=== PATIENT | male | born 1940 | race African-American/Black ===

== ENCOUNTER 2017-07-06 15:03 | Emergency (ER) | payer MEDICARE ==
[2017-07-06] MEDS ORDERED: ISOVUE-370 76%-LOCM 1 ML ONE (17:04)
[2017-07-06] MEDS ORDERED: HYDROcodone/Acetaminophen 10/325 mg Tablet ONE (17:33)
[2017-07-06 17:53] LABS: #Eosinphils 0.1 thou/uL (0.0-0.7); #Lymphocytes 2.8 thou/uL (1.20-3.40); #Neutrophils 7.5 thou/uL (1.40-6.50); %Basophils 0.4 % (0.0-1.0); %Eosinophils 1.2 % (0.0-10.0); %Lymphocytes 24.3 % (21.0-51.0); %Monocytes 8.7 % (0.0-10.0); Hematocrit 42.6 % (42.0-52.0); Mean Platelet Volume 6.5 fL (7.4-10.4); Red Blood Cell (RBC) Count 4.46 mill/uL (4.70-6.10); White Blood Cell (WBC) Count 11.4 thou/uL (4.8-10.8)
[2017-07-06 18:14] LABS: Anion Gap 13 mmol/L (10-20); BUN (Urea Nitrogen) 8 mg/dL (8.4-25.7); Calc. Creatinine Clearance 0 mL/min (70-130); Calcium 10.8 mg/dL (7.8-10.44); Carbon Dioxide 28 mmol/L (23-31); Chloride 100 mmol/L (98-107); Estimated GFR-MDRD Greater than 90
[2017-07-06] MEDS ORDERED: Oxymetazoline HCl 0.05% ( 15 ML ) ONE (19:18)
--- NOTE | 2017-07-06 19:27 | CT ---
CT NECK WITH IV CONTRAST 07/06/17 HISTORY: Throat pain. Cough. FINDINGS: Upper airway is patent. Thyroid gland has a normal appearance. There is calcification in the arterial structures. Prominent degenerative changes involve the cervical spine. The adenoidal tissue to the right of midline is slightly prominent without focal fluid collection linda arent. No tonsillar abscesses or apparent. Numerous small metallic embedded objects are present throughout the left side of the neck and face. IMPRESSION: 1. No acute inflammatory lesions of the neck are apparent. Chronic type findings are as detailed above. 2. Atherosclerosis. POS: [facility]
== END 2017-07-06 19:23 | disposition home or self-care (01) ==
LOC: ERS 15:03
DX: J02.9 Acute pharyngitis, unspecified (principal); E11.9 Type 2 diabetes mellitus without complications; I10 Essential (primary) hypertension
CPT/HCPCS: 36415; 70491; 80048; 85025

== ENCOUNTER 2020-05-24 07:54 | Outpatient (CLI) | payer MEDICARE, OTHER ==
[2020-05-25 12:03] LABS: SARS-CoV-2 MS2 Positive; SARS-CoV-2 N Gene Negative; SARS-CoV-2 S Gene Negative; SARS-CoV-2 by NAA Not Detected (NotDetected); SARS-CoV-2 orf1ab Negative
== END 2020-05-24 07:55 | disposition home or self-care (01) ==
LOC: LABBT 07:54
PROVIDERS: ATTEND Ophthalmology Retina Specialist
DX: H54.7 Unspecified visual loss (principal); Z20.828 Contact with and (suspected) exposure to other viral communicable diseases
CPT/HCPCS: 87635; U0003

== ENCOUNTER 2020-05-27 05:45 | Day surgery (SDC) | payer MEDICARE ==
[2020-05-26 14:40] VITALS: BMI 28.3
[2020-05-27] MEDS ORDERED: Phenylephrine 2.5% Ophth Soln 5 ML BOT ONE (05:58)
[2020-05-27] MEDS ORDERED: Cyclopentolate 1% Opth Drop 2 ML BOT ONE (05:58)
[2020-05-27] MEDS ORDERED: Fluorouracil 100 MG, Enoxaparin Sodium 25 MG, EPINEPHrine 0.3 MG in Ophthalmic Irrigati... IRR SCH (06:15)
[2020-05-27] MEDS ORDERED: PROPOFOL 20 ML ONE (06:21)
[2020-05-27] MEDS ORDERED: Bupivacaine PF 0.75% SDV 10 ML ONE (12:39)
[2020-05-27] MEDS ORDERED: Maxitrol 0.1% Opth Oint 3.5 GM TUBE ONE (12:39)
[2020-05-27] MEDS ORDERED: Triamcinolone 40 MG/ML VIAL ONE (12:39)
[2020-05-27] MEDS ORDERED: Lidocaine 1% PF 5 ML VIAL ONE (12:39)
[2020-05-27] MEDS ORDERED: Lidocaine 4% PF 5 ML AMP ONE (12:39)
[2020-05-27] MEDS ORDERED: Indocyanine Green 25 MG/10 ML VIAL ONE (12:39)
[2020-05-27] MEDS ORDERED: CEFAZOLIN 1 GM VIAL ONE (12:39)
--- NOTE | 2020-05-28 16:23 | OP ---
DATE OF PROCEDURE: 05/27/2020 PREOPERATIVE DIAGNOSIS: Epiretinal membrane, right eye. POSTOPERATIVE DIAGNOSIS: Epiretinal membrane, right eye. PROCEDURE PERFORMED: Pars plana vitrectomy and membrane peel, right eye. ANESTHESIA: Local with monitored anesthesia care. DESCRIPTION OF PROCEDURE: The patient was identified in the preoperative holding area. Appropriate informed consent for the planned surgical procedure on the right eye had been obtained. The patient was transported to the operative suite. Appropriate cardiopulmonary monitoring was established. Local anesthesia was obtained using retrobulbar modified Van Lint lid block using 50:50 mixture of 4% lidocaine and 0.75% bupivacaine. The patient was prepped and draped in usual sterile manner for ophthalmic surgery on the right eye. Lid speculum was placed in the right eye. A 25-gauge trocar was placed in the conjunctiva and sclera superotemporally, inferotemporally, and supranasally. Infusion line was placed inferotemporally. Light pipe and vitreous cutter were inserted into the eye. Core vitrectomy was performed. A very dense posterior epiretinal membrane was identified. Indocyanine green dye was infused in the posterior pole x1. Ripping forceps were introduced into the eye. The superior edge of the membrane was noted to be elevated. It was lifted with end gripping forceps and peeled across the macula. Nasally to the nerve, area of traction was noted on the retinal surface and what was appeared to be old proliferans were identified there. The area was demarcated with a focal laser. No other holes, breaks, or tears were identified. Trocars were removed. The eye was noted to retain pressure well. Retrobulbar Kenalog and sequential Ancef were placed. Antibiotic ointment was placed. The eye was patched and shielded. The patient was taken to postop recovery unit in good condition and subsequently no perioperative complications. The patient was instructed to keep patch and shield on, avoid lifting or bending. Follow up in the morning with Dr. Chang. Job ID: [id number]
== END 2020-05-27 08:35 | disposition home or self-care (01) ==
LOC: SDC 05:45
PROVIDERS: ATTEND Ophthalmology Retina Specialist
PROC: 08T43ZZ Resection of Right Vitreous, Percutaneous Approach (ICD-10-PCS; principal; 2020-05-27)
PROC: 08NE3ZZ Release Right Retina, Percutaneous Approach (ICD-10-PCS; 2020-05-27)
DX: H35.371 Puckering of macula, right eye (principal)
CPT/HCPCS: 36416; J0171; J0690; J1650; J2001; J2704; J3301; J3490; J9190

== ENCOUNTER 2021-10-10 19:09 | Emergency (ER) | payer MEDICARE ==
[2021-10-10] MEDS ORDERED: Bacitracin 1 PK ONE (19:51)
[2021-10-10] MEDS ORDERED: Boostrix 0.5 ML (Tdap) VIAL ONE (19:51)
== END 2021-10-10 20:15 | disposition home or self-care (01) ==
LOC: ERS 19:09
DX: S11.91XA Laceration without foreign body of unspecified part of neck, initial encounter (principal); E11.9 Type 2 diabetes mellitus without complications; I10 Essential (primary) hypertension; X58.XXXA Exposure to other specified factors, initial encounter
CPT/HCPCS: 90471; 90715; 99282

== ENCOUNTER 2023-10-06 14:56 | Emergency (ER) | payer MEDICARE, SELFPAY ==
[2023-10-06 16:48] LABS: #Eosinphils 0.3 thou/uL (0.0-0.7); #Monocytes 0.8 thou/uL (0.11-0.59); #Neutrophils 2.8 thou/uL (1.40-6.50); %Basophils 0.3 % (0.0-1.0); %Eosinophils 5.4 % (0.0-10.0); %Lymphocytes 38.4 % (21.0-51.0); %Neutrophils 43.7 % (42.0-75.0); Hematocrit 32.1 % (42.0-52.0); Mean Corpuscular HGB CONC 34.3 g/dL (32.0-36.0); Mean Corpuscular Hemoglobin 30.1 pg (27.0-31.0); Mean Corpuscular Volume 87.9 fl (78.0-98.0); Mean Platelet Volume 9.5 fL (7.4-10.4); Platelet Count 213 10x3/uL (130-400); RBC Distribution Width 13.3 % (11.5-14.5); Red Blood Cell (RBC) Count 3.65 mill/uL (4.70-6.10); White Blood Cell (WBC) Count 6.3 10x3/uL (4.8-10.8)
[2023-10-06 17:04] LABS: Bacteria/HPF None Seen HPF (None Seen); Bilirubin Negative (Negative); Blood, Urine Negative (Negative); CAUTI Indications for Culture Pelvic or flank pain; Clarity Clear (Clear); Glucose, Urine (Dipstick) Normal (Negative); Ketone, Urine Negative (Negative); Leukocyte Negative Leu/uL (Negative); Nitrite Negative (Negative); Protein, Urine (Dipstick) Negative (Neg-Trace); RBC/HPF 0-3 HPF (0-3); Specific Gravity, Urine 1.009 (1.002-1.036); Squamous Epithelial None Seen HPF (0-3); Urobilinogen Normal mg/dL (Less than 2); WBC/HPF 0-3 HPF (0-3)
[2023-10-06 17:10] LABS: ALT (SGPT) 16 U/L (8-55); AST (SGOT) 25 U/L (5-34); Albumin 3.9 g/dL (3.4-4.8); Alkaline Phosphatase 80 U/L (40-110); Anion Gap 10 mmol/L (10-20); BUN (Urea Nitrogen) 8 mg/dL (8.4-25.7); Bilirubin, Total 0.4 mg/dL (0.2-1.2); Calc. Creatinine Clearance 0 mL/min (70-130); Calcium 10.1 mg/dL (7.8-10.44); Carbon Dioxide 31 mmol/L (23-31); Chloride 104 mmol/L (98-107); Estimated GFR 75; Globulin 3.4 g/dL (2.4-3.5); Glucose 71 mg/dL (83-110); Lipase 7 U/L (8-78); Potassium 3.4 mmol/L (3.5-5.1); Protein, Total 7.3 g/dL (5.8-8.1); Sodium 142 mmol/L (136-145)
[2023-10-06 17:13] LABS: Troponin I 0.019 ng/mL (< 0.028)
[2023-10-06 17:21] LABS: Urine Culture Reflex No No
== END 2023-10-06 20:18 | disposition home or self-care (01) ==
LOC: ERS 14:56
DX: R10.9 Unspecified abdominal pain (principal); I10 Essential (primary) hypertension; E11.9 Type 2 diabetes mellitus without complications; Z79.899 Other long term (current) drug therapy
CPT/HCPCS: 74177; 80053; 81001; 83690; 84484; 85025; 87086; 93005

== ENCOUNTER 2023-10-09 11:52 | Emergency (ER) | payer SELFPAY ==
[2023-10-09 14:16] LABS: Bilirubin Negative (Negative); Blood, Urine Negative (Negative); Glucose, Urine (Dipstick) Negative (Negative); Ketone, Urine Negative (Negative); Leukocyte Small (Negative); Nitrite Positive (Negative); Protein, Urine (Dipstick) Negative (Neg-Trace); Urobilinogen 0.2 mg/dL (Less than 2)
[2023-10-09 14:58] LABS: Clarity Hazy (Clear)
[2023-10-09 14:59] LABS: Bacteria/HPF 4+ HPF (None Seen); CAUTI Indications for Culture Fever or rigors; RBC/HPF None Seen HPF (0-3); Squamous Epithelial 0-3 HPF (0-3)
[2023-10-09 15:00] LABS: Urine Culture Reflex No No
[2023-10-09 15:20] LABS: #Eosinphils 0.2 thou/uL (0.0-0.7); #Monocytes 0.4 thou/uL (0.11-0.59); #Neutrophils 2.7 thou/uL (1.40-6.50); %Basophils 0.4 % (0.0-1.0); %Eosinophils 4.3 % (0.0-10.0); %Lymphocytes 31.5 % (21.0-51.0); %Monocytes 8.8 % (0.0-10.0); %Neutrophils 54.8 % (42.0-75.0); Hematocrit 33.9 % (42.0-52.0); Hemoglobin 11.4 g/dL (14.0-18.0); Mean Corpuscular HGB CONC 33.6 g/dL (32.0-36.0); Mean Corpuscular Hemoglobin 29.6 pg (27.0-31.0); Mean Corpuscular Volume 88.1 fl (78.0-98.0); Mean Platelet Volume 9.5 fL (7.4-10.4); Platelet Count 215 10x3/uL (130-400); RBC Distribution Width 13.3 % (11.5-14.5); Red Blood Cell (RBC) Count 3.85 mill/uL (4.70-6.10); White Blood Cell (WBC) Count 4.9 10x3/uL (4.8-10.8)
[2023-10-09 16:29] LABS: ALT (SGPT) 17 U/L (8-55); AST (SGOT) 24 U/L (5-34); Albumin 3.9 g/dL (3.4-4.8); Alkaline Phosphatase 85 U/L (40-110); Anion Gap 14 mmol/L (10-20); BUN (Urea Nitrogen) 9 mg/dL (8.4-25.7); Bilirubin, Total 0.5 mg/dL (0.2-1.2); Calc. Creatinine Clearance 0 mL/min (70-130); Calcium 9.5 mg/dL (7.8-10.44); Carbon Dioxide 21 mmol/L (23-31); Chloride 110 mmol/L (98-107); Estimated GFR 77; Globulin 3.3 g/dL (2.4-3.5); Glucose 138 mg/dL (83-110); Lipase 6 U/L (8-78); Potassium 3.8 mmol/L (3.5-5.1); Protein, Total 7.2 g/dL (5.8-8.1); Sodium 141 mmol/L (136-145)
== END 2023-10-09 17:27 | disposition home or self-care (01) ==
LOC: ERS 11:52
DX: K59.00 Constipation, unspecified (principal); N39.0 Urinary tract infection, site not specified; I10 Essential (primary) hypertension; E11.9 Type 2 diabetes mellitus without complications; Z55.6 Problems related to health literacy
CPT/HCPCS: 36415; 80053; 81001; 83690; 85025; 93005

== ENCOUNTER 2023-12-20 12:36 | Outpatient (CLI) | payer OTHER | END 2023-12-20 12:37 | disposition home or self-care (01) | LOC: BICCT 12:36 | PROVIDERS: ATTEND Physician Assistant Medical | DX: K59.00 Constipation, unspecified (principal); Z86.010 Personal history of colon polyps | CPT/HCPCS: 74177; 82565 ==

== ENCOUNTER 2024-05-15 08:23 | Outpatient (CLI) | payer OTHER ==
[2024-05-15] MEDS ORDERED: Iopamidol 370 76% 100 ML VIAL ONE (12:04)
== END 2024-05-15 08:24 | disposition home or self-care (01) ==
LOC: CT 08:23
PROVIDERS: ATTEND Family Medicine
DX: R41.82 Altered mental status, unspecified (principal); N40.0 Benign prostatic hyperplasia without lower urinary tract symptoms; M79.5 Residual foreign body in soft tissue
CPT/HCPCS: 70470; Q9967

== ENCOUNTER 2025-04-08 16:38 | Emergency (ER) | payer OTHER ==
[~2025-04-08 16:38] MED LIST: Iopamidol-370 76% 500 ML MDV (1 ML CHARGE) ONE
[2025-04-08 19:42] LABS: #Basophils Less than 0.03 10x3/uL (0.0-0.2); #Eosinophils Less than 0.03 10x3/uL (0.0-0.7); #Monocytes 0.49 10x3/uL (0.11-0.59); #Neutrophils 4.94 10x3/uL (1.40-6.50); %Basophils 0.3 % (0.0-1.0); %Eosinophils 0.2 % (0.0-10.0); %Lymphocytes 16.7 % (21.0-51.0); %Monocytes 7.5 % (0.0-10.0); %Neutrophils 75.1 % (42.0-75.0); Hematocrit 33.6 % (42.0-52.0); Hemoglobin 11.0 g/dL (14.0-18.0); Mean Corpuscular Hemoglobin 27.9 pg (27.0-31.0); Mean Corpuscular Volume 85.3 fL (78.0-98.0); Platelet Count 214 10x3/uL (130-400); Red Blood Cell (RBC) Count 3.94 mill/uL (4.70-6.10); White Blood Cell (WBC) Count 6.57 10x3/uL (4.8-10.8)
[2025-04-08 20:09] LABS: ALT (SGPT) 10 U/L (Less than 45); AST (SGOT) 24 U/L (11-34); Albumin 4.0 g/dL (3.1-4.5); Alkaline Phosphatase 67 U/L (40-110); Anion Gap 12 mmol/L (10-20); BUN (Urea Nitrogen) 12 mg/dL (8.4-25.7); Bilirubin, Total 0.6 mg/dL (0.3-1.2); Calc. Creatinine Clearance 0 mL/min (70-130); Calcium 10.1 mg/dL (7.8-10.44); Carbon Dioxide 28 mmol/L (23-31); Chloride 104 mmol/L (98-107); Globulin 3.5 g/dL (2.4-3.5); Glucose 88 mg/dL (83-110); Potassium 3.3 mmol/L (3.5-5.1); Sodium 141 mmol/L (136-145)
[2025-04-08 20:25] LABS: Bacteria/HPF None Seen HPF (None Seen); CAUTI Indications for Culture Dysuria,urgency,freq; Glucose, Urine (Dipstick) Normal (Negative); Leukocyte Negative Leu/uL (Negative); Protein, Urine (Dipstick) Negative (Neg-Trace); RBC/HPF 0-3 HPF (0-3); Specific Gravity, Urine 1.020 (1.002-1.036); WBC/HPF 0-3 HPF (0-3)
[2025-04-08 20:27] LABS: Urine Culture Reflex No No
[2025-04-08] MEDS ORDERED: Lactulose 20 GM (30 mL) UDCUP ONE (20:56)
== END 2025-04-08 21:03 | disposition home or self-care (01) ==
LOC: ERS 16:38
DX: K59.00 Constipation, unspecified (principal); R14.0 Abdominal distension (gaseous); E11.9 Type 2 diabetes mellitus without complications; I10 Essential (primary) hypertension; Z79.899 Other long term (current) drug therapy; Z79.84 Long term (current) use of oral hypoglycemic drugs; Z79.4 Long term (current) use of insulin
CPT/HCPCS: 36415; 74177; 80053; 80061; 81001; 82043; 83036; 83690; 83735; 84443; 85025; Q9967